=== PATIENT | female | born 1950 | race Caucasian/White ===

== ENCOUNTER 2016-03-07 11:12 | Inpatient (IN) | payer OTHER ==
[~2016-03-07 11:12] MED LIST: FENTANYL 100 MCG/2 ML VIAL IV ONE; HYDROmorphone 2 MG/ML VIAL IM ONE; LIDOCAINE 100 MG PFS IV ONE; MIDAZOLAM 2 MG/2 ML VIAL IV ONE; ONDANSETRON HCL 4 MG/2 ML VIAL IV ONE; PROPOFOL 200 MG/20 ML VIAL IV ONE; SUCCINYLCHOLINE 20 MG/1 ML INJ 10 ML MDV IV ONE
[2016-03-07] MEDS ORDERED: CEFAZOLIN 1 GM VIAL ONE (12:10)
[2016-03-07 12:24] LABS: MPV 8.4 fL (7.4-10.4)
--- NOTE | 2016-03-07 14:59 | HIM.ANES ---
Anesthesia Evaluation & Plan Consented Procedure: INCISION AND DEBRIDEMENT LEFT HIP AND OTHER PROCEDURES INDICATED - Focused Review of Systems Cardiac History: Yes: Hx Hypertension, Hx Heart Murmur (SYSTOLIC HEART MURMUR), Hx Cardiac Disorders, Hx Abnormal Cholesterol/Hyperlipidemia HEENT: Yes: Loose/Decaying Teeth, Hx Vision Problem (GLASSSES), Other HEENT Problems Hx Other HEENT Problems: SEASONAL ALLERGIES Respiratory: Yes: Hx Asthma (Rare rescue use), Hx Chronic Obstructive Pulmonary Disease (COPD), Other Hx Respiratory (h/o PE in 01/2016 after last surgery) No: Hx Pneumonia Gastrointestinal: Yes: Hx Gastroesophageal Reflux Disease (Controlled w Rx), Hx Gastrointestinal Disorders, Hx Colonoscopy (2006, 2013), Hx Endoscopy (07/07), Hx Endoscopic Retrograde Cholangio (07/07), Hx Esophageal Dilatation Neurological/Musculoskeletal: Yes: Hx Migraine, Hx Back Pain, Hx Neurological Disorders Psychological: No Hx Mental/Emotional Disorders Blood/Autoimmune: No: Hx Blood Transfusions, Hx AIDS, Hx Hepatitis (type) Smoking Status: Never smoker Past Social History: Denies: Barbiturate Use, Benzodiazipine Use, Substance Use Disorder Hx Echocardiogram (date): Yes (12/2014 EF 60%) Surgical History: Yes: Nasal (SINUS SX.), Back (LUMBAR DISCECTOMY 12/2014), Hip (LEFT TOTAL HIP), Other (Bilateral tubal ligation in 1974, Lymph node removed from the left breast) Other Surgical History: RT BREAST LUMPECTOMY, BTL 1974 - Focused Physical Exam NPO since: 03/07/16 0800 1/2 CUP BLACK COFFEE WITH MEDS Mallampati: Class II Thyromental Distance: Greater than 3 Neck: Full Range of Motion Dental: Removable Dental Work (missing front teeth) Cardiovascular/Chest: Normal (RRR no mumurs or rubs.) Respiratory: Lungs clear. negative: Rhonchi, Wheezing Any problems with anesthesia, including nausea and vomiting?: No Any relatives with a history of Malignant Hyperthermia?: No Does patient have a history of Malignant Hyperthermia?: No Beta Susan given (if appropriate): N/A Does the patient have a history of Motion Sickness-: No Other: Problem List Problem Status Onset Abscess Acute COPD (chronic obstructive pulmonary disease) Acute Cellulitis and abscess of digit Acute Chest tightness or pressure Acute History of excision of lamina of lumbar vertebra for decompression of spinal cord Acute Hypertension Acute Rheumatoid arthritis Acute Status post total hip replacement, left Acute Lumbar spinal stenosis Chronic CBC/BMP/Other 03/07/16 12:10 Allergies Allergy/AdvReac Type Severity Reaction Status Date / Time codeine Allergy See Verified 03/07/16 11:31 Comments mold Allergy See Verified 03/07/16 11:30 Comments Home Medications Medication Instructions Recorded Last Taken Type Fluticasone/Salmeterol [Advair 1 puff INH BID 08/06/13 03/07/16 08:00 History 250-50 Diskus] Albuterol Sulfate [Proair Hfa] 2 puff INH Q4-6H PRN 01/02/15 01/16/15 07:30 History Pantoprazole Sodium 40 mg PO DAILY 01/04/16 03/07/16 08:00 History Lisinopril/Hydrochlorothiazide 1 tab PO DAILY 02/09/16 03/07/16 08:00 History [Lisinopril-Hctz 20-12.5 mg Tab] Ergocalciferol (Vitamin D2) 50,000 units PO WEEKLY 02/12/16 03/04/16 History [Vitamin D2 (ergocalciferol)] Oxycodone Immediate Release 5 mg PO Q4-6H PRN #40 tab 02/13/16 02/13/16 12:58 Rx [Oxycodone Immediate Release (OxyIR)] Docusate-Senna Concentrate 2 each PO QHS PRN 03/07/16 Unknown History [Senokot S or Martha Colace] Rivaroxaban [Xarelto] 15 mg PO BID 03/07/16 03/07/16 08:00 History Sulfamethoxazole/Trimethoprim 1 tab PO BID 03/07/16 03/06/16 19:00 History [Bactrim Ds Tablet] Height and Weight Patient's height 5 ft 4 in Patient's weight 89.811 kg BMI 35.3 Vital Signs Temperature 97.9 F 03/07/16 11:43 Pulse Rate 75 03/07/16 11:43 Respiratory Rate 18 03/07/16 11:43 Blood Pressure 119/70 03/07/16 11:43 Pulse Oxygen Saturation 94 03/07/16 11:43 METS - Level of Activity: Eating, Dressing, walking around house, dishwashing - Anesthetic Plan Anesthesia Type: General ASA Class: 3, E -: I have examined this patient and reviewed the medical record. The patient has been assessed prior to anesthesia. Risks and benefits of anesthesia and anesthetic technique options have been discussed and all questions answered. The patient accepts the risk and desires me to proceed with the planned anesthetic.
[2016-03-07] MEDS ORDERED: LABETALOL 20 MG/4 ML SYRINGE IV PRN (15:03)
[2016-03-07] MEDS ORDERED: FENTANYL 100 MCG/2 ML VIAL IV PRN ×2 (15:03)
[2016-03-07] MEDS ORDERED: ONDANSETRON HCL 4 MG/2 ML VIAL IV PRN (15:03)
[2016-03-07] MEDS ORDERED: ONDANSETRON HCL 4 MG ODT TAB PO PRN (15:03)
[2016-03-07] MEDS ORDERED: hydrALAZINE 20 MG/ML VIAL IV PRN (15:03)
[2016-03-07] MEDS ORDERED: MEPERIDINE 25 MG/ML TUBEX IV PRN (15:03)
[2016-03-07] MEDS: VANCOMYCIN 1,000 MG VIAL INSTILL ONE ×2 (16:31→18:28)
[2016-03-07] MEDS ORDERED: ALBUTEROL 6.7 GM MDI INH PRN (16:53)
[2016-03-07] MEDS ORDERED: HYDROmorphone 1 MG INJECTION IV PRN ×2 (16:54)
[2016-03-07] MEDS ORDERED: Aluminum;Magnesium;Simethicone 30 ML UDC PO PRN (16:54)
[2016-03-07] MEDS ORDERED: DIPHENHYDRAMINE 25 MG CAP PO PRN (16:54)
[2016-03-07] MEDS ORDERED: DIPHENHYDRAMINE 50 MG/ML VIAL IV PRN (16:54)
[2016-03-07] MEDS ORDERED: SODIUM CHLORIDE 0.9% 3 ML FLUSH FLUSH PRN (16:54)
[2016-03-07] MEDS ORDERED: OXYCODONE HCL 5 MG TABLET PO PRN (16:54)
[2016-03-07] MEDS ORDERED: Pharmacy Order Set Alert SCH (17:00)
[2016-03-07] MEDS ORDERED: [UNRECOGNIZED DRUG - OTHER] SCH (17:00)
[2016-03-07] MEDS ORDERED: Pharmacy Discontinue All Previous Acetaminophen Orders SCH (17:00)
[2016-03-07] MEDS ORDERED: SODIUM CHLORIDE 0.9% 3 ML FLUSH FLUSH SCH (17:00)
[2016-03-07] MEDS ORDERED: NALOXONE 0.4 MG/ML AMPULE IV SCH (17:00)
[2016-03-07] MEDS: FENTANYL 100 MCG/2 ML VIAL ONE ×2 (17:14→17:30)
--- NOTE | 2016-03-07 17:29 | SC.ANESPOS ---
Post-Anesthesia Note LOC: Fully Awake Post-Anesthesia Assessment: Awake, Returned to Baseline, Hemodynamically Stable , Pain Control Adequate Phase I & II Recovery Complete: Yes Apparent Anesthesia Complication: No : N - Vital Signs Blood Pressure: 164/87 Pulse: 76 Resp Rate: 16 O2 Sat: 100 Temp: 97.4 F
[2016-03-07] MEDS ORDERED: HYDROmorphone 1 MG INJECTION ONE (17:34)
[2016-03-07] MEDS ORDERED: DIPHENHYDRAMINE 50 MG/ML VIAL ONE (17:40)
--- NOTE | 2016-03-07 17:53 | HIMCONSMED ---
Consultation Date: 03/07/16 Requesting Physician: Chay Phillips Consulting Doctor: Irish Tello Consult Reason: Medical Management Deandra Jessica is a 65 year old woman who underwent L hip replacement for osteoarthritis and degenerative joint disease of the hip on February 12, 2016. Subsequently she had persistent pain and drainage from the incision site. Apparently the wound re-opened and drained additional material. She was re- evaluated and felt to have an infected joint. She was readmitted today to have the joint washed out and to start IV antibiotics. The entire pre-operative evaluation is not clearly delineated. Presently she is being seen post- operatively at the request of Dr. Franco for assistance with antibiotic coverage. Presumable wound cultures were taken during surgery but are of course not available at this time. We will follow up on those as soon as they do become available. Initial recommendations are for vancomycin plus either clindamycin or ceftriaxone. Since the patient has no allergies, we would recommend ceftriaxone 2 g IV q 24 hr plus vancomycin weight/renal dosing per pharmacy. Chief Complaint: Septic arthritis - Past Medical and Surgical History Cardiac History: Reports: Hypertension, Other (pulmonary embolus Jan 2016) Respiratory History: Reports: Asthma (Rare rescue use), COPD, Pulmonary Embolism (01/2016). Denies: Pneumonia GI/ History: Reports: Gastroesophageal Reflux Systemic History: Reports: Anemia. Denies: Cancer Musculoskeletal History: Reports: Rheumatoid Arthritis Psychological History: Reports: Depression. Denies: Substance Use Disorder Neurological History: Reports: No Significant History Past Surgical History: Reports: Other (Bilateral tubal ligation in 1974, Lymph node removed from the left breast) L hip replacement 2015 Allergies codeine Allergy (Verified 03/07/16 11:31) See Comments "MAKES ME CRAZY IN THE HEAD" mold Allergy (Verified 03/07/16 11:30) See Comments PER ALLERGY TESTING Home Medications Fluticasone/Salmeterol [Advair 250-50 Diskus] 1 puff INH BID 08/06/13 Albuterol Sulfate [Proair Hfa] 2 puff INH Q4-6H PRN 01/02/15 Pantoprazole Sodium 40 mg PO DAILY 01/04/16 Lisinopril/Hydrochlorothiazide [Lisinopril-Hctz 20-12.5 mg Tab] 1 tab PO DAILY 02/09/16 Ergocalciferol (Vitamin D2) [Vitamin D2 (ergocalciferol)] 50,000 units PO WEEKLY 02/12/16 Oxycodone Immediate Release [Oxycodone Immediate Release (OxyIR)] 5 mg PO Q4-6H PRN #40 tab 02/13/16 Docusate-Senna Concentrate [Senokot S or Martha Colace] 2 each PO QHS PRN Rivaroxaban [Xarelto] 15 mg PO BID 03/07/16 Sulfamethoxazole/Trimethoprim [Bactrim Ds Tablet] 1 tab PO BID 03/07/16 - Social History Travel Outside of [place] in the Last 3 Months?: No Lives: with Spouse Smoking Status: Never smoker Social History: Denies: Barbiturate Use, Benzodiazipine Use, Substance Use Disorder - Family History Reports: Hypertension (Mother), Diabetes (son mother), Cancer (sister), Stroke ( Mother), Cardiac Disorders (Mother, SON) - Review of Systems Yes Review of systems cannot be obtained due to the patient's medical condition - Physical Exam Vital Signs: Initial Vitals Temperature 97.9 F 03/07/16 11:43 Pulse Rate 75 03/07/16 11:43 Respiratory Rate 18 03/07/16 11:43 Blood Pressure 119/70 03/07/16 11:43 Pulse Oxygen Saturation 94 03/07/16 11:43 Constitutional: Decreased Consciousness, Somnolent Oriented to: Not Oriented - HEENT Head: Normal Eye: Normal (PERRL: EOMI) Oropharynx: Membranes Dry. negative: Exudate, Red Tympanic Membrane: Normal ENT EAC: Normal TMJ: Normal Nose: No Symptoms Reported. negative: Bleeding, Congestion, Discharge Respiratory: Normal - CTA. negative: Rales, Tachypnea, Wheezes Cardiovascular: Normal (regular rhythm and rate) - GI Auscultation: Normal Palpation: Normal. negative: Enlarged liver, Enlarged spleen, Fluid Wave, Mass Tenderness: Non tender Meier's Sign: Negative Rectal Exam: Deferred - Musculoskeletal Back: Normal Extremities: Pedal Pulse (intact bilaterally), Radial Pulse (normal), Other (c/ o pain and tenderness left lateral hip over greater trochanter) Spine: non-tender, normal alignment, normal inspection - Integumentary Skin: Warm, Dry. negative: Rash Lymphatics: Normal - Neurologic Memory Impaired: Unable to Test Motor Function: Other (moving all extremities spontaneously) Cranial Nerve: Normal Cerebellar: Unable to Test Mood Description: Anxious, Agitated Thought: negative: Coherent (crying in pain, mild delirium) Perception: Normal - Lab Results Laboratory Tests 03/07/16 03/07/16 03/07/16 12:10 12:10 12:10 WBC 9.9 Hgb 11.3 L Hct 34.7 L Plt Count 458 H ESR 37 H Sodium 141 Potassium 4.1 Chloride 102 Carbon Dioxide 28 Anion Gap 15 BUN 11 Creatinine 0.70 Estimated GFR (MDRD) > 60 Glucose 103 H Calculated Osmolality 270 Calcium 9.7 C-Reactive Prot, Quant 10.5 H - Assessment (1) Septic arthritis of hip M00.9 - PYOGENIC ARTHRITIS, UNSPECIFIED Suspected Present on Admission: Clinically Unable to Determine Qualifiers: Laterality: left Qualified Code(s): M00.9 - Pyogenic arthritis, unspecified No gram stain or culture is available, nor is any confirmation that the joint has actually been aspirated. However, since she had a wound dehisence, there is the potential for septic arthritis although this may be due to poor healing from her rheumatoid arthritis. While awaiting deep tissue culture results, I recommend IV vancomycin based on weight and renal function and 2 g of IV ceftriaxone q 24 hours. She may require Nystatin or Diflucan as yeast prophylaxis also. (2) Hypertension I10 - ESSENTIAL (PRIMARY) HYPERTENSION Acute Present on Admission: Yes Qualifiers: Hypertension type: essential hypertension Qualified Code(s): I10 - Essential (primary) hypertension Resume home medications. Continue to monitor blood pressures (3) Status post total hip replacement, left Z96.642 - PRESENCE OF LEFT ARTIFICIAL HIP JOINT Acute Present on Admission: Yes P.r.n. analgesics and physical therapy when cleared by surgery to participate. 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 Continue same. Case Care Discussed with: Patient, Consultants, Nursing Staff, Resource Management Total Time: 65 min Critical Care: Yes Couseling Time (>50% in counseling/coordination): No Code: 291
[2016-03-07] MEDS ORDERED: FLUTICASONE/SALMETEROL 250/50 DISKUS INH SCH (18:00)
[2016-03-07] MEDS: SODIUM CHLORIDE 0.9% 3 ML FLUSH FLUSH SCH (18:29)
[2016-03-07] MEDS: NS 1,000 ML IV SCH (18:34)
[2016-03-07] MEDS: ONDANSETRON HCL 4 MG/2 ML VIAL IV SCH ×2 (18:45→22:53)
[2016-03-07] MEDS: CALCIUM CARBONATE + VITAMIN D 500 MG TAB PO SCH (18:45)
[2016-03-07 18:50] LABS: BLOOD UREA NITROGEN 11 MG/DL (7-17); CALCIUM 9.7 MG/DL (8.4-10.2); CALCULATED OSMOLALITY 270 MOs/Kg (270-290); CHLORIDE 102 mEq/L (98-107); GLUCOSE 103 MG/DL (70-99); SODIUM LEVEL 141 mEq/L (137-146)
[2016-03-07] MEDS: CEFTRIAXONE 2 GM in D5W 100 ML IV SCH (19:59)
[2016-03-07] MEDS ORDERED: Vaccine Screening Complete SCH (20:00)
[2016-03-07] MEDS: OXYCODONE (OxyCONTIN) 10 MG TAB PO SCH (20:14)
[2016-03-07] MEDS: RIVAROXABAN 10 MG TAB PO SCH (20:14)
[2016-03-07] MEDS: FLUTICASONE/SALMETEROL 250/50 DISKUS INH SCH (21:05)
[2016-03-07] MEDS: ACETAMINOPHEN 325 MG/TAB TABLET PO SCH (21:14)
[2016-03-07] MEDS: HYDROmorphone 1 MG INJECTION IV PRN (23:14)
[2016-03-08] MEDS: HYDROmorphone 1 MG INJECTION IV PRN ×3 (02:40→13:53)
[2016-03-08 04:57] VITALS: BMI 34.0
[2016-03-08] MEDS: SODIUM CHLORIDE 0.9% 3 ML FLUSH FLUSH SCH ×2 (04:59→16:29)
[2016-03-08] MEDS: ACETAMINOPHEN 325 MG/TAB TABLET PO SCH ×3 (05:01→23:30)
[2016-03-08] MEDS: ONDANSETRON HCL 4 MG/2 ML VIAL IV SCH ×2 (05:01→11:32)
[2016-03-08] MEDS ORDERED: PANTOPRAZOLE 40 MG TAB PO SCH (06:00)
--- NOTE | 2016-03-08 07:26 | PCM.ORTHBL ---
- Subjective Post Op Day: 1 Daily Assessment - Patient: Reports: No new complaints, Awake Alert Oriented x4 , Still having pain, Tolerating Regular Diet, Afebrile, Other (Patient appears fatigued and drowsy today. Denies chest pain). Denies: Ambulating with Physical Therapist, Shortness of breath, Nausea, Vomiting - Objective / Physical Exam Vital Signs: Temperature: 98.1 F (03/08/16 04:51) HR: 86 (03/08/16 04:51)RR: 20 (03/08/16 04: 51) BP: 114/63 (03/08/16 04:51)Pulse Ox: 93 (03/08/16 04:51) General: Alert, Oriented x3, Cooperative, No acute distress, Well appearing Musculoskeletal / Extremities: 2 plus Dorsalis Pedis Pulse, Dressing Clean/Dry/ Intact. negative: Tenderness (no calf tenderness) Neurological: Positive Sensation First Dorsal Web Space, Sensation to light touch intact, Extensor Hallicus Longus Intact, Flexor Hallicus Longus Intact, Dorsiflexion Intact, Plantarflexion Intact Laboratory/Diagnostics Reviewed: 03/08/16 06:19 - Assessment and Plan (1) Infection of left prosthetic hip joint Acute T84.52XA - INFECT/INFLM REACTION DUE TO INTERNAL LEFT HIP PROSTH, INIT Present on Admission: Yes initial encounter T84.52XA - Infection and inflammatory reaction due to internal left hip prosthesis, initial encounter Plan: POD#1 s/p I&D of left JOSEP with revision of head component PT/OT/WBAT TEDS/SCDS/will continue Xarelto Continue pain management Continue IV antibiotics, on Vancomycin; Awaiting cultures D/C planning. Patient will need 6 weeks IV antibiotics and PICC line placement prior to discharge. Will await culture results. Will likely plan for ID follow -up at discharge as well.
[2016-03-08 07:54] LABS: BLOOD UREA NITROGEN 15 MG/DL (7-17); CALCIUM 9.3 MG/DL (8.4-10.2); CALCULATED OSMOLALITY 261 MOs/Kg (270-290); CHLORIDE 98 mEq/L (98-107); GLUCOSE 142 MG/DL (70-99); SODIUM LEVEL 134 mEq/L (137-146)
[2016-03-08] MEDS ORDERED: Remove Transdermal Scopolamine Patch after 24 hours ONE (08:00)
[2016-03-08] MEDS ORDERED: HYDROCHLOROTHIAZIDE 12.5 MG CAP PO SCH (09:00)
[2016-03-08] MEDS: FLUTICASONE/SALMETEROL 250/50 DISKUS INH SCH ×2 (09:01→20:26)
[2016-03-08] MEDS: OXYCODONE (OxyCONTIN) 10 MG TAB PO SCH ×2 (09:10→23:30)
[2016-03-08] MEDS: NS 1,000 ML IV SCH ×2 (09:11→17:00)
[2016-03-08] MEDS: RIVAROXABAN 10 MG TAB PO SCH (09:12)
[2016-03-08] MEDS: LISINOPRIL 20 MG TAB PO SCH (09:12)
[2016-03-08] MEDS: CALCIUM CARBONATE + VITAMIN D 500 MG TAB PO SCH ×2 (11:32→17:00)
[2016-03-08] MEDS: VITAMINS, MULTIPLE CAP PO SCH (11:32)
--- NOTE | 2016-03-08 16:13 | GENMEDPROG ---
Chief Complaint: SEPTIC ARTHRITIS, HEMATEMESIS, DIZZINESS Subjective Note: PATIENT VOMITING SMALL AMOUNTS OF DARK BROWNISH RED FLUID Currently: Reports: Nausea and Vomiting, Other (DIZZINESS) - Physical Examination Vital Signs and I&O: Last Vital Signs Temp 98.0 F 03/08/16 14:00 Pulse 90 03/08/16 14:00 Resp 20 03/08/16 14:00 BP 106/53 L 03/08/16 14:00 Pulse Ox 98 03/08/16 14:00 Oxygen Pulse Oxygen Saturation 98 O2 Device Nasal Cannula Oxygen Flow Rate 3 Fraction of Inspired Oxygen ( 100 FIO2) Intake & Output 03/05/16 03/06/16 03/07/16 03/08/16 23:59 23:59 23:59 23:59 Intake Total 1917 Output Total 275 400 Balance -275 1517 Patient's weight 89.811 kg 89.953 kg General: Alert, Oriented x3, Cooperative, No acute distress, Well appearing HEENT: PERRLA, EOMI, Anicteric Sclera, Mucous membr. moist/pink, Pallor Neck: Full range of motion, Normal Trachea alignment, Normal inspection, No Masses palpable Lymphatics: Normal Respiratory: Normal - CTA Cardiovascular: Regular rate and rhythm, Normal S1, Normal S2 GI: Normal bowel sounds, Soft, Non tender, No masses Extremities/Musculoskeletal: Normal pulses, Edema (1+), DJD, FROM Skin: Warm,Dry and Intact, No breakdown Neurological: Normal speech, Strength at 5/5 X4 ext, Normal tone, Gait Unsteady Psych/Mental Status: Normal Affect, Cooperative Lab/DI/Studies Reviewed: Laboratory Tests 03/08/16 03/08/16 06:19 06:19 WBC 18.7 H Hgb 8.8 L D Hct 26.9 L Plt Count 467 H Sodium 134 L Potassium 5.3 H D Chloride 98 Carbon Dioxide 27 Anion Gap 14 BUN 15 Creatinine 1.00 Estimated GFR (MDRD) 55 L Glucose 142 H Calculated Osmolality 261 L Calcium 9.3 - Assessment (1) Septic arthritis of hip Suspected M00.9 - PYOGENIC ARTHRITIS, UNSPECIFIED Qualifiers: Laterality: left Comment/Plan: Since she had a wound dehisence, there is the potential for septic arthritis although this may be due to poor healing from her rheumatoid arthritis. While awaiting deep tissue culture results, continue IV vancomycin based on weight and renal function and 2 g of IV ceftriaxone q 24 hours. She may require Nystatin or Diflucan as yeast prophylaxis also. (2) Hypertension Acute I10 - ESSENTIAL (PRIMARY) HYPERTENSION Qualifiers: Hypertension type: essential hypertension Qualified Code(s): I10 - Essential (primary) hypertension Comment/Plan: Resume home medications. Continue to monitor blood pressures (3) Status post total hip replacement, left Acute Z96.642 - PRESENCE OF LEFT ARTIFICIAL HIP JOINT Comment/Plan: P.r.n. analgesics and physical therapy when cleared by surgery to participate. (4) Hematemesis with nausea Acute K92.0 - HEMATEMESIS; R11.0 - NAUSEA Comment/Plan: Stop NSAIDs & Aspirin, Hold Celebrex and Xarelto, begin IV Protonix infusion. Follow H/H. If stable after 48 hrs, resume DVT prophylaxis. Use SCD's in meantime. (5) Rheumatoid arthritis Chronic M06.9 - RHEUMATOID ARTHRITIS, UNSPECIFIED Qualifiers: Rheumatoid arthritis location: multiple sites Rheumatoid factor presence: unspecified presence Qualified Code(s): M06.9 - Rheumatoid arthritis, unspecified Comment/Plan: Hold any DMARDs for now, give adequate analgesics and begin physical therapy (6) Pulmonary embolus and infarction Chronic I26.99 - OTHER PULMONARY EMBOLISM WITHOUT ACUTE COR PULMONALE Comment/Plan: occurred 1 month ago- still on Xarelto for this. Continue same.
[2016-03-08] MEDS ORDERED: PANTOPRAZOLE 40 MG VIAL IV ONE (18:47)
[2016-03-08] MEDS ORDERED: SODIUM CHLORIDE IV SCH (19:00)
[2016-03-08] MEDS ORDERED: PANTOPRAZOLE SODIUM IV SCH (19:00)
[2016-03-08] MEDS: CEFTRIAXONE 2 GM in D5W 100 ML IV SCH (20:46)
[2016-03-08] MEDS: ONDANSETRON HCL 4 MG/2 ML VIAL IV PRN (20:52)
[2016-03-08] MEDS: PANTOPRAZOLE SODIUM 40 MG in NS 100 ML IV SCH ×2 (23:59)
[2016-03-09] MEDS: PANTOPRAZOLE SODIUM 40 MG in NS 100 ML IV SCH ×4 (04:45→19:26)
[2016-03-09] MEDS: SODIUM CHLORIDE 0.9% 3 ML FLUSH FLUSH SCH ×2 (04:50→17:48)
[2016-03-09] MEDS: ACETAMINOPHEN 325 MG/TAB TABLET PO SCH ×3 (04:51→21:54)
[2016-03-09] MEDS: HYDROmorphone 1 MG INJECTION IV PRN (06:50)
[2016-03-09] MEDS: ONDANSETRON HCL 4 MG/2 ML VIAL IV PRN ×2 (07:03→20:54)
[2016-03-09] MEDS: FLUTICASONE/SALMETEROL 250/50 DISKUS INH SCH ×2 (07:39→20:30)
[2016-03-09 07:51] LABS: BLOOD UREA NITROGEN 16 MG/DL (7-17); CALCULATED OSMOLALITY 257 MOs/Kg (270-290); CHLORIDE 100 mEq/L (98-107); GLUCOSE 111 MG/DL (70-99); SODIUM LEVEL 132 mEq/L (137-146)
[2016-03-09] MEDS: NS 1,000 ML IV SCH ×3 (07:59→18:01)
--- NOTE | 2016-03-09 08:33 | PCM.ORTHBL ---
- Subjective Post Op Day: 2 Daily Assessment - Patient: Reports: No new complaints, Still having pain, Pain is less, Tolerating Regular Diet - Objective / Physical Exam Vital Signs: Temperature: 98.3 F (03/09/16 05:49) HR: 87 (03/09/16 05:49)RR: 18 (03/09/16 05: 49) BP: 114/50 (03/09/16 05:49)Pulse Ox: 98 (03/09/16 07:42) General: Alert, Oriented x3, Cooperative, No acute distress Musculoskeletal / Extremities: 2 plus Dorsalis Pedis Pulse, Dressing Clean/Dry/ Intact Neurological: Sensation to light touch intact (DP/SP/T/S/S), Extensor Hallicus Longus Intact, Flexor Hallicus Longus Intact, Dorsiflexion Intact, Plantarflexion Intact Skin: Warm,Dry and Intact, No rashes, No breakdown Laboratory/Diagnostics Reviewed: Abnormal Lab Results 03/09/16 03/09/16 07:18 07:18 WBC 13.9 H RBC 2.34 L Hgb 6.5 L* D Hct 19.6 L Sodium 132 L Glucose 111 H Calculated Osmolality 257 L - Assessment and Plan (1) Septic arthritis of hip Suspected M00.9 - PYOGENIC ARTHRITIS, UNSPECIFIED Present on Admission: Clinically Unable to Determine left Plan: 65 y/o f POD #2 s/p L JOSEP I+D with head exchange. Pt. doing well. Afebrile. Pain improving. Cx's pending. Hgb dropped to 6.5. Discussed plan w/ Dr. Phillips this am and will plan on transfusion 2units PRBC's. OOB w/ PT- WBAT. Dispo planing. Will f/u cx's.
--- NOTE | 2016-03-09 09:39 | GENMEDPROG ---
Chief Complaint: SEPTIC JOINT, ANEMIA, HTN, RA, S/P IRRIGATON OF L HIP Currently: Reports: Nausea and Vomiting, Other (DIZZINESS) - Physical Examination Vital Signs and I&O: Last Vital Signs Temp 98.3 F 03/09/16 05:49 Pulse 87 03/09/16 05:49 Resp 18 03/09/16 05:49 BP 114/50 L 03/09/16 05:49 Pulse Ox 98 03/09/16 07:42 Oxygen Pulse Oxygen Saturation 98 O2 Device Nasal Cannula Oxygen Flow Rate 3 Fraction of Inspired Oxygen ( 100 FIO2) Intake & Output 03/06/16 03/07/16 03/08/16 03/09/16 23:59 23:59 23:59 23:59 Intake Total 3462 2412 Output Total 853 286 8364 Balance -275 2562 662 Patient's weight 89.811 kg 89.953 kg 92.278 kg General: Alert, Oriented x3, Cooperative, No acute distress HEENT: Normal, PERRLA, EOMI, Anicteric Sclera, Mucous membr. moist/pink Neck: Non-tender, Full range of motion, Normal Trachea alignment, Normal inspection Lymphatics: Normal Respiratory: Normal - CTA Cardiovascular: Regular rate and rhythm, Normal S1, Normal S2 GI: Normal bowel sounds, Soft, Non tender Extremities/Musculoskeletal: Normal pulses Skin: Warm,Dry and Intact, No rashes, No breakdown Neurological: Normal speech, Strength at 5/5 X4 ext, Normal tone, Cranial nerves 3-12 NL Psych/Mental Status: Appropriate, Normal Affect, Cooperative Lab/DI/Studies Reviewed: Laboratory Tests 03/08/16 03/08/16 03/09/16 06:19 06:19 07:18 WBC 18.7 H 13.9 H Hgb 8.8 L D 6.5 L* D Hct 26.9 L 19.6 L Plt Count 467 H 312 Sodium 134 L Potassium 5.3 H D Chloride 98 Carbon Dioxide 27 Anion Gap 14 BUN 15 Creatinine 1.00 Estimated GFR (MDRD) 55 L Glucose 142 H Calculated Osmolality 261 L Calcium 9.3 03/09/16 07:18 WBC Hgb Hct Plt Count Sodium 132 L Potassium 4.4 Chloride 100 Carbon Dioxide 27 Anion Gap 9 BUN 16 Creatinine 0.80 Estimated GFR (MDRD) > 60 Glucose 111 H Calculated Osmolality 257 L Calcium 9.0 - Assessment (1) Septic arthritis of hip Suspected M00.9 - PYOGENIC ARTHRITIS, UNSPECIFIED Qualifiers: Laterality: left Comment/Plan: Since she had a wound dehisence, there is the potential for septic arthritis although this may be due to poor healing from her rheumatoid arthritis. While awaiting deep tissue culture results, continue IV vancomycin based on weight and renal function and 2 g of IV ceftriaxone q 24 hours. She may require Nystatin or Diflucan as yeast prophylaxis also. (2) Anemia Acute D64.9 - ANEMIA, UNSPECIFIED Qualifiers: Anemia type: other cause Other causes of anemia: acute posthemorrhagic Qualified Code(s): D62 - Acute posthemorrhagic anemia Comment/Plan: ACUTE BLOOD LOSS- continue to hold Xarelto & Aspirin. Patient is on Protonix infusion. Transfuse 2 units PRBCs. (3) Hypertension Acute I10 - ESSENTIAL (PRIMARY) HYPERTENSION Qualifiers: Hypertension type: essential hypertension Qualified Code(s): I10 - Essential (primary) hypertension Comment/Plan: Resume home medications. Continue to monitor blood pressures (4) Status post total hip replacement, left Acute Z96.642 - PRESENCE OF LEFT ARTIFICIAL HIP JOINT Comment/Plan: P.r.n. analgesics and physical therapy when cleared by surgery to participate. (5) Hematemesis with nausea Acute K92.0 - HEMATEMESIS; R11.0 - NAUSEA Comment/Plan: Stopped all NSAIDs & Aspirin, off Celebrex and Xarelto, continue IV Protonix infusion. Follow H/ H. Transfusing blood today. Use SCD's in meantime. (6) Rheumatoid arthritis Chronic M06.9 - RHEUMATOID ARTHRITIS, UNSPECIFIED Qualifiers: Rheumatoid arthritis location: multiple sites Rheumatoid factor presence: unspecified presence Qualified Code(s): M06.9 - Rheumatoid arthritis, unspecified Comment/Plan: Hold any DMARDs for now, give adequate analgesics and begin physical therapy (7) Pulmonary embolus and infarction Chronic I26.99 - OTHER PULMONARY EMBOLISM WITHOUT ACUTE COR PULMONALE Comment/Plan: occurred 1 month ago- still on Xarelto for this. Unfortunately had to discontinue this medication due to hematemesis. May need IVC filter. Case Care Discussed with: Patient, Family, Nursing Staff Code: [id number] (12+)
[2016-03-09] MEDS: LISINOPRIL 20 MG TAB PO SCH (10:00)
[2016-03-09] MEDS: OXYCODONE (OxyCONTIN) 10 MG TAB PO SCH ×2 (10:00→21:54)
[2016-03-09] MEDS: VITAMINS, MULTIPLE CAP PO SCH (10:00)
[2016-03-09] MEDS: CALCIUM CARBONATE + VITAMIN D 500 MG TAB PO SCH ×2 (10:00→17:49)
[2016-03-09] MEDS ORDERED: FUROSEMIDE 40 MG/4 ML VIAL IV ONE (18:00)
[2016-03-09] MEDS: FUROSEMIDE 20 MG/2 ML VIAL ONE ×2 (18:01→18:03)
[2016-03-09] MEDS: CEFTRIAXONE 2 GM in D5W 100 ML IV SCH (20:37)
[2016-03-09] MEDS: MAGNESIUM HYDROXIDE 30 ML BOTTLE PO PRN (21:54)
[2016-03-10] MEDS: PANTOPRAZOLE SODIUM 40 MG in NS 100 ML IV SCH ×5 (00:40→21:35)
[2016-03-10] MEDS: NS 1,000 ML IV SCH ×2 (06:27→17:20)
[2016-03-10] MEDS: SODIUM CHLORIDE 0.9% 3 ML FLUSH FLUSH SCH ×2 (06:28→17:20)
[2016-03-10] MEDS: ACETAMINOPHEN 325 MG/TAB TABLET PO SCH ×3 (06:35→21:37)
[2016-03-10 07:31] LABS: MPV 8.9 fL (7.4-10.4)
[2016-03-10 07:41] LABS: BLOOD UREA NITROGEN 13 MG/DL (7-17); CALCIUM 8.6 MG/DL (8.4-10.2); CALCULATED OSMOLALITY 262 MOs/Kg (270-290); CHLORIDE 102 mEq/L (98-107); GLUCOSE 94 MG/DL (70-99); SODIUM LEVEL 136 mEq/L (137-146)
[2016-03-10] MEDS: FLUTICASONE/SALMETEROL 250/50 DISKUS INH SCH ×2 (07:51→20:23)
--- NOTE | 2016-03-10 08:20 | PCM.ORTHBL ---
- Subjective Post Op Day: 3 Daily Assessment - Patient: Reports: No new complaints, Feels better, Tolerating Regular Diet, Voiding without difficulty, Afebrile, Ambulating with Physical Therapist - Objective / Physical Exam Vital Signs: Temperature: 98.1 F (03/10/16 06:38) HR: 85 (03/10/16 06:38)RR: 20 (03/10/16 06: 38) BP: 139/77 (03/10/16 06:38)Pulse Ox: 94 (03/10/16 07:54) General: Alert, Oriented x3, Cooperative, No acute distress, Obese Musculoskeletal / Extremities: 2 plus Dorsalis Pedis Pulse, Dressing Clean/Dry/ Intact, Tenderness Neurological: Positive Sensation First Dorsal Web Space, Sensation to light touch intact, Extensor Hallicus Longus Intact, Flexor Hallicus Longus Intact, Dorsiflexion Intact, Plantarflexion Intact Skin: Warm,Dry and Intact Laboratory/Diagnostics Reviewed: Laboratory Results - last 24 hr 03/09/16 03/10/16 03/10/16 09:55 06:55 06:55 WBC 11.8 H RBC 2.86 L Hgb 8.2 L D Hct 25.0 L MCV 87 MCH 28.6 MCHC 32.8 L RDW 15.0 H Plt Count 297 MPV 8.9 Sodium 136 L Potassium 4.1 Chloride 102 Carbon Dioxide 28 Anion Gap 10 BUN 13 Creatinine 0.70 Estimated GFR (MDRD) > 60 Glucose 94 Calculated Osmolality 262 L Calcium 8.6 Blood Type A POSITIVE Antibody Screen Negative Crossmatch See Detail - Assessment and Plan (1) Infection of left prosthetic hip joint Acute T84.52XA - INFECT/INFLM REACTION DUE TO INTERNAL LEFT HIP PROSTH, INIT Present on Admission: Yes initial encounter T84.52XA - Infection and inflammatory reaction due to internal left hip prosthesis, initial encounter Comment/Plan: POD #3 s/p L JOSEP I&D with head exchange. MRSA and gram negative rods on prelim cultures with patient currently on vanco. Sensitivities pending. PT/OT for WBAT LLE with AD. DVT ppx as ordered. Will d/w medicine and Dr. Phillips.
[2016-03-10] MEDS: VITAMINS, MULTIPLE CAP PO SCH (09:00)
[2016-03-10] MEDS: CALCIUM CARBONATE + VITAMIN D 500 MG TAB PO SCH ×2 (09:00→17:20)
[2016-03-10] MEDS: LISINOPRIL 20 MG TAB PO SCH (09:00)
[2016-03-10] MEDS: OXYCODONE (OxyCONTIN) 10 MG TAB PO SCH (09:00)
--- NOTE | 2016-03-10 12:24 | GENMEDPROG ---
Chief Complaint: SEPTIC JOINT, TME, ANEMIA, GI BLEED, Subjective Note: Patient c/o excessive drowsiness Currently: Reports: Nausea and Vomiting, Other (DIZZINESS) - Physical Examination Vital Signs and I&O: Last Vital Signs Temp 98.0 F 03/10/16 10:00 Pulse 91 03/10/16 10:00 Resp 18 03/10/16 10:00 BP 102/49 L 03/10/16 10:00 Pulse Ox 98 03/10/16 10:00 Oxygen Pulse Oxygen Saturation 98 O2 Device Room Air Oxygen Flow Rate 1 Fraction of Inspired Oxygen ( 100 FIO2) Intake & Output 03/07/16 03/08/16 03/09/16 03/10/16 23:59 23:59 23:59 23:59 Intake Total 3462 4258 2842 Output Total 861 875 5717 2075 Balance -275 2562 -642 767 Patient's weight 89.811 kg 89.953 kg 92.278 kg 93.242 kg General: Alert, Oriented x3, Cooperative, No acute distress, Obese HEENT: Normal, PERRLA, EOMI, Anicteric Sclera Neck: Full range of motion, Normal Trachea alignment, Normal inspection Lymphatics: Normal Respiratory: Normal - CTA Cardiovascular: Regular rate, Normal S1, Normal S2 GI: Normal bowel sounds, Soft, Non tender, No masses Extremities/Musculoskeletal: Normal pulses. negative: Edema Skin: Warm,Dry and Intact Neurological: Normal speech, Strength at 5/5 X4 ext, Normal tone, Drowsy Psych/Mental Status: Normal Affect, Cooperative, Drowsy Lab/DI/Studies Reviewed: Microbiology 03/07/16 15:45 Hip - Left Tissue Culture - Preliminary Staphylococcus aureus Morg. morg. ssp morganii Streptococcus anginosus - Assessment (1) Septic arthritis of hip Suspected M00.9 - PYOGENIC ARTHRITIS, UNSPECIFIED Qualifiers: Laterality: left Comment/Plan: Since she had a wound dehisence, there is the potential for septic arthritis although this may be due to poor healing from her rheumatoid arthritis. Deep tissue culture results- shows MRSA, Morganella, and Strep species, continue IV vancomycin and renal function and 2g IV ceftriaxone q 24 hours. Also IV Diflucan as yeast prophylaxis. (2) Anemia Acute D64.9 - ANEMIA, UNSPECIFIED Qualifiers: Anemia type: other cause Other causes of anemia: acute posthemorrhagic Qualified Code(s): D62 - Acute posthemorrhagic anemia Comment/Plan: ACUTE BLOOD LOSS- continue to hold Xarelto & Aspirin. Patient is on Protonix infusion. Transfused 2 units PRBCs yesterday. (3) Hypertension Acute I10 - ESSENTIAL (PRIMARY) HYPERTENSION Qualifiers: Hypertension type: essential hypertension Qualified Code(s): I10 - Essential (primary) hypertension Comment/Plan: Resume home medications. Continue to monitor blood pressures (4) Status post total hip replacement, left Acute Z96.642 - PRESENCE OF LEFT ARTIFICIAL HIP JOINT Comment/Plan: P.r.n. analgesics and physical therapy when cleared by surgery to participate. (5) Hematemesis with nausea Acute K92.0 - HEMATEMESIS; R11.0 - NAUSEA Comment/Plan: Stopped all NSAIDs & Aspirin, off Celebrex and Xarelto, continue IV Protonix infusion. Follow H/ H. Transfused blood yesterday. Use SCD's in meantime. (6) Rheumatoid arthritis Chronic M06.9 - RHEUMATOID ARTHRITIS, UNSPECIFIED Qualifiers: Rheumatoid arthritis location: multiple sites Rheumatoid factor presence: unspecified presence Qualified Code(s): M06.9 - Rheumatoid arthritis, unspecified Comment/Plan: Hold any DMARDs for now, give adequate analgesics and begin physical therapy (7) Pulmonary embolus and infarction Chronic I26.99 - OTHER PULMONARY EMBOLISM WITHOUT ACUTE COR PULMONALE Comment/Plan: occurred 1 month ago- was still on Xarelto for this. Unfortunately had to discontinue this medication due to hematemesis. May need IVC filter.
[2016-03-10] MEDS: CEFTRIAXONE 2 GM in D5W 100 ML IV SCH (19:43)
[2016-03-10] MEDS: DOCUSATE-SENNA CONCENTRATE TAB PO PRN (21:01)
[2016-03-11] MEDS: PANTOPRAZOLE SODIUM 40 MG in NS 100 ML IV SCH ×3 (02:10→12:08)
[2016-03-11] MEDS: SODIUM CHLORIDE 0.9% 3 ML FLUSH FLUSH SCH ×2 (05:46→17:17)
[2016-03-11] MEDS: ACETAMINOPHEN 325 MG/TAB TABLET PO SCH ×3 (05:46→19:15)
--- NOTE | 2016-03-11 06:40 | PCM.ORTHBL ---
- Subjective Post Op Day: 4 Daily Assessment - Patient: Reports: No new complaints, Awake Alert Oriented x4 , Feels better, Pain is less, Tolerating Regular Diet, Voiding without difficulty, Afebrile, Ambulating with Physical Therapist, Other (DENIES CHEST PAIN). Denies: Shortness of breath, Nausea, Vomiting - Objective / Physical Exam Vital Signs: Temperature: 98 F (03/11/16 02:00) HR: 88 (03/11/16 02:00)RR: 18 (03/11/16 02:00 ) BP: 118/64 (03/11/16 02:00)Pulse Ox: 94 (03/11/16 02:00) General: Alert, Oriented x3, Cooperative, No acute distress, Well appearing Musculoskeletal / Extremities: 2 plus Dorsalis Pedis Pulse, Dressing Clean/Dry/ Intact. negative: Tenderness (no calf tenderness) Neurological: Positive Sensation First Dorsal Web Space, Sensation to light touch intact, Extensor Hallicus Longus Intact, Flexor Hallicus Longus Intact, Dorsiflexion Intact, Plantarflexion Intact Laboratory/Diagnostics Reviewed: 03/11/16 07:54 03/10/16 06:55 - Assessment and Plan (1) Infection of left prosthetic hip joint Acute T84.52XA - INFECT/INFLM REACTION DUE TO INTERNAL LEFT HIP PROSTH, INIT Present on Admission: Yes T84.52XA - Infection and inflammatory reaction due to internal left hip prosthesis, initial encounter Plan: s/p I&D of left JOSEP, revision of head component Continue pain management Continue antibiotics; patient on Vancomycin, Ceftriaxone has been added following culture results; Will need 6 weeks IV antibiotics at discharge. Patient will also need PICC line prior to discharge. WBC improved PT/OT/WBAT TEDS/SCDS/Xarelto held due to hematemesis. Continue anticoagulation per medicine. Consideration for IVC filter. D/C planning, possible to Rehab/SNF
[2016-03-11] MEDS: FLUTICASONE/SALMETEROL 250/50 DISKUS INH SCH ×2 (07:56→21:11)
[2016-03-11] MEDS: LISINOPRIL 20 MG TAB PO SCH (08:01)
[2016-03-11 08:14] LABS: AUTOMATED BASOPHIL 0.7 % (0-2); AUTOMATED EOSINOPHIL 3.8 % (0-5); AUTOMATED LYMPH 18.4 % (17-44); AUTOMATED MONOCYTE 8.4 % (3-10); AUTOMATED NEUTROPHIL 68.7 % (45-76); MPV 8.3 fL (7.4-10.4)
[2016-03-11] MEDS ORDERED: ERGOCALCIFEROL (VITAMIN D2) 50000 UNITS CAP PO SCH (09:00)
--- NOTE | 2016-03-11 10:30 | PCM.ORTHBL ---
- Subjective Chief Complaint: s/p I & D L hip Hospital Day #: 5 Post Op Day: 5 Daily Assessment - Patient: Reports: No new complaints, Pain is less, Tolerating Regular Diet, Ambulating with Physical Therapist, Other (Jacek crenhsaw.) - Objective / Physical Exam Vital Signs: Temperature: 97.8 F (03/11/16 06:00) HR: 76 (03/11/16 06:00)RR: 18 (03/11/16 06: 00) BP: 133/64 (03/11/16 06:00)Pulse Ox: 94 (03/11/16 07:55) General: Alert, Oriented x3 Musculoskeletal / Extremities: 2 plus Dorsalis Pedis Pulse, Motor 5/5 throughout Neurological: Positive Sensation First Dorsal Web Space, Sensation to light touch intact, Extensor Hallicus Longus Intact, Flexor Hallicus Longus Intact, Dorsiflexion Intact, Plantarflexion Intact Plan: Continue IV Abx Ceftriaxone/ Vancomicin ESR/CRP in AM PICC line and IVC filter Placement.
--- NOTE | 2016-03-11 10:38 | GENMEDPROG ---
Currently: Reports: Nausea and Vomiting, Other (DIZZINESS) - Physical Examination Vital Signs and I&O: Last Vital Signs Temp 97.8 F 03/11/16 06:00 Pulse 76 03/11/16 06:00 Resp 18 03/11/16 06:00 BP 133/64 03/11/16 06:00 Pulse Ox 94 03/11/16 07:55 Oxygen Pulse Oxygen Saturation 94 O2 Device Room Air Oxygen Flow Rate 2 Fraction of Inspired Oxygen ( 100 FIO2) Intake & Output 03/08/16 03/09/16 03/10/16 03/11/16 23:59 23:59 23:59 23:59 Intake Total 3462 4258 4717 1060 Output Total 900 4900 3725 1225 Balance 2562 -642 992 -165 Patient's weight 89.953 kg 92.278 kg 93.242 kg General: Alert, Oriented x3, Cooperative, No acute distress, Well appearing HEENT: Normal, PERRLA, EOMI, Anicteric Sclera, Mucous membr. moist/pink Neck: Full range of motion, Normal Trachea alignment, Normal inspection, No Masses palpable Lymphatics: Normal Respiratory: Normal - CTA Cardiovascular: Regular rate and rhythm, Normal S1, Normal S2 GI: Normal bowel sounds, Soft, Non tender, No hepatospenomegaly, No masses, Obese Extremities/Musculoskeletal: Normal pulses, DJD Skin: Warm,Dry and Intact, No rashes, No breakdown Neurological: Normal tone, Cranial nerves 3-12 NL, Drowsy Psych/Mental Status: Appropriate, Normal Affect, Cooperative - Assessment (1) Septic arthritis of hip Suspected M00.9 - PYOGENIC ARTHRITIS, UNSPECIFIED Qualifiers: Laterality: left Comment/Plan: Deep tissue culture results- shows MRSA, Morganella, and Strep species, continue IV vancomycin and renal function and 2g IV ceftriaxone q 24 hours. Also IV Diflucan as yeast prophylaxis. Dr. Michelle to do PICC and IVC filter. (2) Anemia Acute D64.9 - ANEMIA, UNSPECIFIED Qualifiers: Anemia type: other cause Other causes of anemia: acute posthemorrhagic Qualified Code(s): D62 - Acute posthemorrhagic anemia Comment/Plan: ACUTE BLOOD LOSS- continue to hold Xarelto & Aspirin. Patient is on Protonix infusion. Transfused 2 units PRBCs yesterday. (3) Hypertension Acute I10 - ESSENTIAL (PRIMARY) HYPERTENSION Qualifiers: Hypertension type: essential hypertension Qualified Code(s): I10 - Essential (primary) hypertension Comment/Plan: Resume home medications. Continue to monitor blood pressures (4) Status post total hip replacement, left Acute Z96.642 - PRESENCE OF LEFT ARTIFICIAL HIP JOINT Comment/Plan: P.r.n. analgesics and physical therapy when cleared by surgery to participate. (5) Hematemesis with nausea Acute K92.0 - HEMATEMESIS; R11.0 - NAUSEA Comment/Plan: Stopped all NSAIDs & Aspirin, off Celebrex and Xarelto, continue IV Protonix infusion. Follow H/ H. Transfused blood yesterday. Use SCD's in meantime. (6) Rheumatoid arthritis Chronic M06.9 - RHEUMATOID ARTHRITIS, UNSPECIFIED Qualifiers: Rheumatoid arthritis location: multiple sites Rheumatoid factor presence: unspecified presence Qualified Code(s): M06.9 - Rheumatoid arthritis, unspecified Comment/Plan: Hold any DMARDs for now, give adequate analgesics and begin physical therapy (7) Pulmonary embolus and infarction Chronic I26.99 - OTHER PULMONARY EMBOLISM WITHOUT ACUTE COR PULMONALE Comment/Plan: occurred 1 month ago- was still on Xarelto for this. Unfortunately had to discontinue this medication due to hematemesis. Dr. Michelle to place IVC filter.
--- NOTE | 2016-03-11 10:50 | PCM.SURGCO ---
Consultation Date: 03/11/16 Requesting Physician: Chay Phillips Dye Line Operator: Beka Michelle Consult Reason: Poor Venous Access, Other (PE) - History of Present Illness The patient is an unfortunate 65-year-old female who developed an infected joint and had joint washout was started on IV antibiotics. She had subsequently after her hip surgery back in January had developed a pulmonary emboli and had been put on Xarelto. She however developed some hematemesis and had to have the anticoagulation stopped. We have been asked to place inferior vena cava filter because of her history pulmonary emboli and DVT and inability to anticoagulate. We have also been asked to obtain long-term access so that she can get long-term IV antibiotics. The patient is in good spirits. She had her initial left hip replacement and February 11 in last year. She had the wash out on 03/07/2016. She does have a son who had from a pulmonary emboli. Chief Complaint: Septic arthritis - Past Medical and Surgical History Cardiac History: Reports: Hypertension Respiratory History: Reports: Asthma, COPD, Pulmonary Embolism GI/ History: Reports: Gastroesophageal Reflux. Denies: Renal Disease Systemic History: Reports: Anemia. Denies: Cancer Musculoskeletal History: Reports: Arthritis, Rheumatoid Arthritis, Osteoarthritis Psychological History: Reports: Depression. Denies: Substance Use Disorder Neurological History: Reports: No Significant History. Denies: Cerebrovascular Accident, Seizures Past Surgical History: Reports: Other (The hip surgery as described above, tubal ligation, lymph node biopsy.) Allergies codeine Allergy (Verified 03/07/16 11:31) See Comments "MAKES ME CRAZY IN THE HEAD" mold Allergy (Verified 03/07/16 11:30) See Comments PER ALLERGY TESTING Home Medications Fluticasone/Salmeterol [Advair 250-50 Diskus] 1 puff INH BID 08/06/13 Albuterol Sulfate [Proair Hfa] 2 puff INH Q4-6H PRN 01/02/15 Pantoprazole Sodium 40 mg PO DAILY 01/04/16 Lisinopril/Hydrochlorothiazide [Lisinopril-Hctz 20-12.5 mg Tab] 1 tab PO DAILY 02/09/16 Ergocalciferol (Vitamin D2) [Vitamin D2 (ergocalciferol)] 50,000 units PO WEEKLY 02/12/16 Oxycodone Immediate Release [Oxycodone Immediate Release (OxyIR)] 5 mg PO Q4-6H PRN #40 tab 02/13/16 Docusate-Senna Concentrate [Senokot S or Martha Colace] 2 each PO QHS PRN Rivaroxaban [Xarelto] 15 mg PO BID 03/07/16 Sulfamethoxazole/Trimethoprim [Bactrim Ds Tablet] 1 tab PO BID 03/07/16 - Social History Travel Outside of [place] in the Last 3 Months?: No Lives: with Spouse Smoking Status: Never smoker Social History: Denies: Substance Use Disorder - Family History Reports: Hypertension (Mother), Diabetes (son mother), Cancer (sister), Stroke ( Mother), Cardiac Disorders (Mother, SON) - Review of Systems Constitutional: No Symptoms Reported. negative: Chills, Fever Eyes: No Symptoms Reported. negative: Blurred Vision, Double Vision Ears: No Symptoms Reported. negative: Hearing Loss, Pain Nose: No Symptoms Reported. negative: Abrasion, Bleeding Mouth: No Symptoms Reported. negative: Pain, Tooth Pain Throat/Neck: No Symptoms Reported. negative: Pain, Hoarseness Respiratory: No Symptoms Reported. negative: Cough, Hemoptysis Cardiovascular: No Symptoms Reported. negative: Chest Pain, Cyanosis Gastrointestinal: Other (Hematemesis.). negative: Nausea, Vomiting, Diarrhea Genitourinary: No Symptoms Reported. negative: Bleeding, Dysuria Neurological: No Symptoms Reported. negative: Dizziness, Seizure Musculoskeletal:: Osteoarthritis, Stiffness, Swelling Integumentary: Wound. negative: Bruising, Itching Allergic/Immunologic: No Symptoms Reported. negative: Hives, Itching Hematologic: Anemia. negative: Lymphadenopathy Endocrine: No Symptoms Reported. negative: Weight Gain, Weight Loss Psychiatric: Depression. negative: Anxiety - Physical Exam Vital Signs: Initial Vitals Temperature 98 F 03/07/16 11:12 Constitutional: No apparent distress, Alert Oriented to: Time, Person, Place - HEENT Head: Normal. negative: Laceration, Tender Eye: Normal. negative: Edema, Scleral Icterus Oropharynx: Normal. negative: Membranes Dry, Red ENT EAC: Normal. negative: Blood TMJ: Normal. negative: Crepitance, Tender Nose: No Symptoms Reported. negative: Abrasion, Bleeding Respiratory: Normal - CTA. negative: Diminished, Rhonchi Cardiovascular: Normal. negative: Bradycardia, Tachycardia, Irregular, Diastolic murmur, Systolic murmur - GI Auscultation: Normal. negative: Bruit Palpation: Normal. negative: Enlarged liver, Enlarged spleen Tenderness: Non tender Meier's Sign: Negative Rectal Exam: Deferred - Exam Deferred: Yes - Musculoskeletal Back: Normal. negative: Abrasion, CVA Tenderness Extremities: Other (Wound left hip. Covered with IO band.). negative: Calf Tenderness, Clubbing, Cyanosis Spine: non-tender, normal alignment, normal inspection - Integumentary Skin: Normal. negative: Clammy, Diaphoretic Lymphatics: Normal. negative: Adenopathy, Tender - Neurologic Memory Impaired: Normal Motor Function: Normal Cranial Nerve: Normal Cerebellar: Normal Mood Description: Normal Thought: Coherent Perception: Normal - Lab Results 03/11/16 07:54 03/10/16 06:55 - Assessment/Plan (1) Pulmonary embolus and infarction I26.99 - OTHER PULMONARY EMBOLISM WITHOUT ACUTE COR PULMONALE Chronic Comment: Patient with hematemesis. Needs IVC filter since can't anticoagulate. Explained in detail to patient. Will arrange. (2) Hematemesis with nausea K92.0 - HEMATEMESIS; R11.0 - NAUSEA Acute Comment: Unable to anticoagulate so will need inferior vena cava filter. May need GI evaluation to make sure there is no underlying malignancy or other complicating factors. (3) Septic arthritis of hip M00.9 - PYOGENIC ARTHRITIS, UNSPECIFIED Suspected left Comment: Needs long-term IV antibiotics so we will put place tunneled central access. (4) COPD (chronic obstructive pulmonary disease) J44.9 - CHRONIC OBSTRUCTIVE PULMONARY DISEASE, UNSPECIFIED Acute unspecified COPD J44.9 - Chronic obstructive pulmonary disease, unspecified Comment: Will do procedures under local to avoid pulmonary complications.
--- NOTE | 2016-03-11 11:50 | HIMOP ---
DATE OF PROCEDURE: 03/07/2016 PREOPERATIVE DIAGNOSIS: Left hip infection, status post left total hip replacement. POSTOPERATIVE DIAGNOSIS: Left hip infection, status post left total hip replacement. PROCEDURE PERFORMED: Irrigation and debridement, left hip with the exchange of the femoral head. SURGEON: Chay Phillips MD WIRE TWISTER: Dennis Butler. ANESTHESIA: General endotracheal anesthesia. IV FLUIDS: Crystalloids. ESTIMATED BLOOD LOSS: 200 mL. SPECIMENS: Cultures sent for Gram staining as well as tissue and fluid were both sent for Gram staining as well as for tissue culture. COMPLICATIONS: None. IMPLANTS: Maritza 36 millimeter outer diameter stainless steel head. BRIEF HISTORY: Deandra Jessica is a [id number], who back on 02/12/2016, underwent left total hip replacement. Two weeks postoperatively she was noticed to have mild wound dehiscence. This wound dehiscence progressed and patient developed serosanguineous drainage from the wound. The patient was initially tried on oral antibiotics; however, the drainage progressed. At that time, decision was made to proceed with irrigation and debridement of the left hip with possible exchange of the poly or the femoral head. The patient understood that the risks involved in surgery include continued infection, need for further surgery, continued pain, DVT, pulmonary embolism, stroke, or even . She volunteered an informed consent. The patient was seen on the day of surgery in the preop holding area. Surgical site was marked. The patient was then wheeled back into the operating room. DESCRIPTION OF THE PROCEDURE: The patient was placed supine on the operating table. Proper timeout was performed. Antibiotics were withheld until the cultures were obtained. Previously made incision was utilized. Skin and deep fascia was incised. The serosanguineous fluid was seen in the deep to the deep fascia extending all up to the level of the arthroplasty. The hip was done through the indirect anterior approach. The sutures in the tensor fascia lourdes were removed. The hip was dislocated. The hip polyethylene was in good shape and was left as such. The patient had a ceramic femoral head. This was removed. The wound was copiously irrigated with 6 liters of normal saline. The wound was also irrigated with Betadine. No osiel pus was encountered. The fluid was sent for cultures and Gram staining as well as the tissue, which was sent for cultures and Gram staining. We replaced the ceramic head with a stainless steel femoral head of the same size. The hip was reduced. The wound was closed in layers after placing vancomycin powder in the wound. A sterile dressing was applied. The patient tolerated the procedure very well. DISPOSITION: The patient would be started on IV Ancef until the cultures are back. At that time, proper antibiotics will be started IV. The medicine service will be consulted regarding the advice on the IV antibiotics. [id number]
[2016-03-11] MEDS: CALCIUM CARBONATE + VITAMIN D 500 MG TAB PO SCH ×2 (12:08→17:16)
[2016-03-11] MEDS: VITAMINS, MULTIPLE CAP PO SCH (12:09)
[2016-03-11] MEDS ORDERED: ISOVUE-300 (61%) 50 ML ONE (14:25)
[2016-03-11] MEDS ORDERED: HEPARIN 5000 UNITS/ML VIAL ONE ×2 (14:25→14:45)
[2016-03-11] MEDS ORDERED: BUPIVACAINE 0.25%-EPINEPHRINE 1:200,000 30 ML ONE (14:28)
[2016-03-11] MEDS ORDERED: LIDOCAINE 1% 30 ML VIAL (PRESERVATIVE FREE) ONE (15:15)
[2016-03-11] MEDS ORDERED: LABETALOL 20 MG/4 ML SYRINGE IV PRN (15:32)
[2016-03-11] MEDS ORDERED: ONDANSETRON HCL 4 MG ODT TAB PO PRN (15:32)
[2016-03-11] MEDS ORDERED: ONDANSETRON HCL 4 MG/2 ML VIAL IV PRN (15:32)
[2016-03-11] MEDS ORDERED: HYDROmorphone 1 MG INJECTION IV PRN ×2 (15:32)
[2016-03-11] MEDS ORDERED: MEPERIDINE 25 MG/ML TUBEX IV PRN (15:32)
[2016-03-11] MEDS ORDERED: hydrALAZINE 20 MG/ML VIAL IV PRN (15:32)
[2016-03-11] MEDS ORDERED: FENTANYL 100 MCG/2 ML VIAL IV PRN ×2 (15:32)
--- NOTE | 2016-03-11 15:35 | HIM.ANES ---
Anesthesia Evaluation & Plan Consented Procedure: INCISION AND DEBRIDEMENT LEFT HIP AND OTHER PROCEDURES INDICATED Surgeon:: Chay Phillips - Focused Review of Systems Cardiac History: Yes: Hx Hypertension, Hx Heart Murmur (SYSTOLIC HEART MURMUR), Hx Cardiac Disorders, Hx Abnormal Cholesterol/Hyperlipidemia HEENT: Yes: Loose/Decaying Teeth, Hx Vision Problem (GLASSSES), Other HEENT Problems Hx Other HEENT Problems: SEASONAL ALLERGIES Respiratory: Yes: Hx Asthma (Rare rescue use), Hx Chronic Obstructive Pulmonary Disease (COPD), Other Hx Respiratory (h/o PE in 01/2016 after last surgery) No: Hx Pneumonia Gastrointestinal: Yes: Hx Gastroesophageal Reflux Disease (Controlled w Rx), Hx Gastrointestinal Disorders, Hx Colonoscopy (2006, 2013), Hx Endoscopy (07/07), Hx Endoscopic Retrograde Cholangio (07/07), Hx Esophageal Dilatation Neurological/Musculoskeletal: Yes: Hx Migraine, Hx Back Pain, Hx Neurological Disorders Psychological: Yes Hx Depression, No Hx Mental/Emotional Disorders Blood/Autoimmune: Yes: Hx Anemia No: Hx Blood Transfusions, Hx AIDS, Hx Hepatitis (type) Smoking Status: Never smoker Past Social History: Denies: Barbiturate Use, Benzodiazipine Use, Substance Use Disorder Hx Echocardiogram (date): Yes (12/2014 EF 60%) Surgical History: Yes: Nasal (SINUS SX.), Back (LUMBAR DISCECTOMY 12/2014), Hip (LEFT TOTAL HIP), Other (Bilateral tubal ligation in 1974, Lymph node removed from the left breast) Other Surgical History: RT BREAST LUMPECTOMY, BTL 1974 - Focused Physical Exam NPO since: 03/07/16 0800 1/2 CUP BLACK COFFEE WITH MEDS Mallampati: Class II Thyromental Distance: Greater than 3 Neck: Full Range of Motion Dental: Removable Dental Work (missing front teeth) Any problems with anesthesia, including nausea and vomiting?: No Any relatives with a history of Malignant Hyperthermia?: No Does patient have a history of Malignant Hyperthermia?: No Beta Susan given (if appropriate): N/A Does the patient have a history of Motion Sickness-: No Other: Problem List Problem Status Onset Anemia Acute Hematemesis with nausea Acute Infection of left prosthetic hip joint Acute Pulmonary embolus and infarction Chronic Septic arthritis of hip Suspected Abscess Acute COPD (chronic obstructive pulmonary disease) Acute Cellulitis and abscess of digit Acute Chest tightness or pressure Acute History of excision of lamina of lumbar vertebra for decompression of spinal cord Acute Hypertension Acute Status post total hip replacement, left Acute Lumbar spinal stenosis Chronic Rheumatoid arthritis Chronic CBC/BMP/Other 03/11/16 07:54 03/10/16 06:55 Allergies Allergy/AdvReac Type Severity Reaction Status Date / Time codeine Allergy See Verified 03/07/16 11:31 Comments mold Allergy See Verified 03/07/16 11:30 Comments Home Medications Medication Instructions Recorded Last Taken Type Fluticasone/Salmeterol [Advair 1 puff INH BID 08/06/13 03/07/16 08:00 History 250-50 Diskus] Albuterol Sulfate [Proair Hfa] 2 puff INH Q4-6H PRN 01/02/15 01/16/15 07:30 History Pantoprazole Sodium 40 mg PO DAILY 01/04/16 03/07/16 08:00 History Lisinopril/Hydrochlorothiazide 1 tab PO DAILY 02/09/16 03/07/16 08:00 History [Lisinopril-Hctz 20-12.5 mg Tab] Ergocalciferol (Vitamin D2) 50,000 units PO WEEKLY 02/12/16 03/04/16 History [Vitamin D2 (ergocalciferol)] Oxycodone Immediate Release 5 mg PO Q4-6H PRN #40 tab 02/13/16 02/13/16 12:58 Rx [Oxycodone Immediate Release (OxyIR)] Docusate-Senna Concentrate 2 each PO QHS PRN 03/07/16 Unknown History [Senokot S or Martha Colace] Rivaroxaban [Xarelto] 15 mg PO BID 03/07/16 03/07/16 08:00 History Sulfamethoxazole/Trimethoprim 1 tab PO BID 03/07/16 03/06/16 19:00 History [Bactrim Ds Tablet] Height and Weight Patient's height 5 ft 4 in Patient's weight 93.242 kg Weight (Calculated Kilograms) 93.242 BMI 34.0 Vital Signs Temperature 97.9 F 03/11/16 10:37 Pulse Rate 80 03/11/16 14:02 Respiratory Rate 20 03/11/16 14:02 Blood Pressure 152/66 03/11/16 14:02 Pulse Oxygen Saturation 95 03/11/16 14:02 METS - Level of Activity: Eating, Dressing, walking around house, dishwashing - Anesthetic Plan Anesthesia Type: MAC ASA Class: 3 -: I have examined this patient and reviewed the medical record. The patient has been assessed prior to anesthesia. Risks and benefits of anesthesia and anesthetic technique options have been discussed and all questions answered. The patient accepts the risk and desires me to proceed with the planned anesthetic.
--- NOTE | 2016-03-11 16:12 | HIMOPRPT ---
DATE OF PROCEDURE: 03/11/16 PREOPERATIVE DIAGNOSES: Pulmonary emboli, gastrointestinal bleeding unable to anticoagulate, poor IV access, need for long-term IV access for antibiotics for chronic infection. POSTOPERATIVE DIAGNOSES: Same. PROCEDURES: Placement of inferior vena cava filter with fluoroscopy and ultrasound guidance. Placement of right internal jugular Auguste catheter, tunneled central line with fluoroscopy and ultrasound guidance. SURGEON: Beka Michelle MD ANESTHESIA: Moderate IV sedation with local anesthesia. COMPLICATIONS: None. ESTIMATED BLOOD LOSS: Minimal. ANTIBIOTICS: Preoperative antibiotics given. INDICATIONS: The patient is an unfortunate female who had hip replacement and pulmonary emboli afterward she had been treated with anticoagulation for months but then had an infection of her hip and had to have that treated surgically. She developed some hematemesis and we have been asked to place inferior vena cava filter because of her history of pulmonary emboli. She also was in need of long-term IV access in order that she can get IV antibiotics for her infected hip. We explained the risks and benefits of this to her including the risk of infection, bleeding and anesthesia as well as the unforeseen complications. We also discussed the possibility of migration of the inferior vena cava filter. She understood and agreed. OPERATIVE NOTE: The patient was brought to the operating room and placed on the operating table in the supine position. After adequate amount of general anesthesia she was prepped and draped in sterile manner. When given the okay by anesthesia after appropriate time-out the right neck was anesthetized and under ultrasound guidance large-bore needle was placed into the internal jugular vein. A guidewire was placed in this with the advanced into the inferior vena cava with fluoroscopic control. A sheath and dilator were then placed over the guidewire and this was positioned below the renal vein orificies. A venogram was obtained that showed the cava to be 29 mm in diameter. We positioned the sheath below the renal veins and deployed the inferior vena cava filter under fluoroscopic control. It was in excellent condition. The guidewire was replaced and the sheath was removed. Over the guidewire dilator and sheath were placed and then a counter incision was made on the chest wall after infiltration of local anesthetic. The catheter was tunneled between the 2 sites and then the dilator and guidewire removed and catheter was placed through the sheath. The catheter had been cut to appropriate size and was positioned at the atrial caval junction. The sheath had been removed. The catheter flushed and withdrew without any difficulties and was sutured to the chest wall with nylon suture and the access site was closed with 4 0 Monocryl. Dermabond tissue adhesive was applied and allowed to dry. The patient was awoke and taken recover room in excellent condition with correct sponge counts needle counts.
--- NOTE | 2016-03-11 16:49 | SC.ANESPOS ---
Post-Anesthesia Note LOC: Fully Awake Post-Anesthesia Assessment: Awake, Returned to Baseline, Hemodynamically Stable , Pain Control Adequate Phase I & II Recovery Complete: Yes Apparent Anesthesia Complication: No : N PACU Discharge Time: 18:25 - Vital Signs Blood Pressure: 142/62 Pulse: 84 Resp Rate: 16 O2 Sat: 94 Temp: 99.2 F - Comments Anesthesia Discharge Time Report Time 18:25
[2016-03-11] MEDS: PANTOPRAZOLE 40 MG VIAL IV SCH (17:17)
[2016-03-11] MEDS: CEFTRIAXONE 2 GM in D5W 100 ML IV SCH (19:16)
[2016-03-11] MEDS: OXYCODONE HCL 5 MG TABLET PO PRN (19:47)
[2016-03-11] MEDS ORDERED: PROPOFOL 200 MG/20 ML VIAL IV ONE (20:14)
[2016-03-11] MEDS ORDERED: FENTANYL 100 MCG/2 ML VIAL IV ONE (20:14)
[2016-03-11] MEDS ORDERED: MIDAZOLAM 2 MG/2 ML VIAL IV ONE (20:14)
[2016-03-12] MEDS: ACETAMINOPHEN 325 MG/TAB TABLET PO SCH ×2 (04:32→13:34)
[2016-03-12] MEDS: PANTOPRAZOLE 40 MG VIAL IV SCH ×2 (04:32→17:41)
[2016-03-12] MEDS: SODIUM CHLORIDE 0.9% 3 ML FLUSH FLUSH SCH ×2 (04:40→17:41)
--- NOTE | 2016-03-12 06:21 | PCM.ORTHBL ---
- Subjective Hospital Day #: 6 Post Op Day: 5 Daily Assessment - Patient: Reports: No new complaints, Awake Alert Oriented x4 , Feels better, Still having pain, Tolerating Regular Diet, Ambulating with Physical Therapist. Denies: Shortness of breath, Nausea, Vomiting - Objective / Physical Exam Vital Signs: Temperature: 99.2 F (03/11/16 16:49) HR: 73 (03/11/16 22:00)RR: 18 (03/11/16 22: 00) BP: 115/59 (03/11/16 22:00)Pulse Ox: 93 (03/11/16 22:00) General: Alert, Oriented x3, Cooperative, No acute distress, Well appearing Musculoskeletal / Extremities: 2 plus Dorsalis Pedis Pulse. negative: Dressing Clean/Dry/Intact (Dressing was changed again today. New Ioban dressing was placed. Continues to have some drainage along mid incision), Tenderness (no calf tenderness) Neurological: Positive Sensation First Dorsal Web Space, Sensation to light touch intact, Extensor Hallicus Longus Intact, Flexor Hallicus Longus Intact, Dorsiflexion Intact, Plantarflexion Intact - Assessment and Plan (1) Infection of left prosthetic hip joint Acute T84.52XA - INFECT/INFLM REACTION DUE TO INTERNAL LEFT HIP PROSTH, INIT Present on Admission: Yes initial encounter T84.52XA - Infection and inflammatory reaction due to internal left hip prosthesis, initial encounter Plan: POD#5 s/p I&D of left JOSEP, revision of head Continue pain management Dressing change today. Consider woundvac, however will observe until tomorrow. Continue IV antibiotics. PICC line has been placed. Patient will need 6 weeks IV antibiotics. Continue antibiotics per medicine TEDS/SCDS/IVC filter has been placed for DVT prophylaxis D/C plan for SNF/rehab, possibly tomorrow with 6 weeks IV antibiotics. Will need CBC, BMP, SED rate, and CRP every 2 weeks. With plan to follow-up in office in week or earlier as needed.
[2016-03-12 06:25] VITALS: TEMP 98.4
--- NOTE | 2016-03-12 06:25 | PCM.DCS92 ---
- Final/Secondary Discharge Diagnosis (1) Infection of left prosthetic hip joint Acute T84.52XA - INFECT/INFLM REACTION DUE TO INTERNAL LEFT HIP PROSTH, INIT Present on Admission: Yes initial encounter T84.52XA - Infection and inflammatory reaction due to internal left hip prosthesis, initial encounter Discharge Disposition: Home Discharge Condition: Improved Cognitive Discharge Status: Unimpaired Fuctional Discharge Status: Walker Assistance, Recent lower extremety joint replacement, Post-op Weakness Physician Follow up/Referrals: Chay Phillips MD [Staff Physician] - One Week New Prescriptions: Ceftriaxone [Rocephin] 2 gm IV Q24H #40 vial Docusate-Senna Concentrate [Senokot S or Martha Colace] 2 each PO QHS #60 tab Oxycodone Immediate Release [Oxycodone Immediate Release (OxyIR)] 5 mg PO Q4H PRN #40 tab PRN Reason: Pain Pantoprazole Sodium 40 mg PO BID #60 tablet. Vancomycin HCl [Vancomycin] 1,750 mg IV Q24H #40 vial Diet at Discharge: As Tolerated, Cardiac Activity: As Tolerated, No Heavy Lifting, No Driving Call Office For: Worsening Symptoms, Wound is Draining Pus, Fever over 101 F, Fever over 100.5, Wound is Painful, Wound is Red, Weight Gain (see below), Pain Uncontrolled By Meds, Other (See Details) Discontinue use of:: Alcohol, All Illegal Substances, All Types of Tobacco - DC Summary Notes Hospital Course Note:: Discharge summary on patient named RAPHAEL LIVE admitted to [facility] on 03/07/16 by Chay Phillips MD. Date of discharge is [03/12/16]. Afebrile. Hospital course and surgery uneventful. Progressing with PT. Continue pain management. Continue IV antibiotics. IVC filter has been placed for DVT prophylaxis. Wound vac has been placed. Do not remove dressing. Should call office with any dressing concerns. Discharge plan for home with HH/ PT with 6 weeks IV antibiotics. Will need CBC, BMP, SED rate, and CRP every 2 weeks. With plan to follow-up in office in 1 week or earlier as needed. Wound Care Surgical Site: Yes Site Description (if applicable): left hip May Shower Starting:: upon discharge; keep wound vac clean and dry Dressing/Site Care (if applicable): Wound vac in place. Do not remove dressing. Call office with any dressing concerns. Medical Equipment (Order must still be written on paper): Walker Remove Transdermal Scopalamine patch if present: YES Medication Instructions: Take Stool Softener Continue Ice Packs/Ice Machine to Operative Area: Yes Activity as Tolerated: Yes Weight Bearing: Full Current Dressing: Ioban Dressing Care: Keep Wound Clean & Dry, No Tub Baths, Do Not Change Dressing ( Call office with any dressing concerns. Reinforce as needed.), Other Instructions Below (keep woundvac clean and dry.) - Consults/Home Health Outpatient Consults: Home Health, Physical Therapy - Physical Exam Vital Signs: Initial Vitals Temperature 98 F 03/07/16 11:12 Constitutional: No apparent distress, Alert, Well appearing Oriented to: Time, Person, Place - HEENT Head: Normal - Musculoskeletal Extremities: Pedal Pulse. negative: Calf Tenderness - Neurologic Memory Impaired: Normal Motor Function: Normal Cerebellar: Normal Mood Description: Normal Thought: Coherent Perception: Normal
[2016-03-12] MEDS: FLUTICASONE/SALMETEROL 250/50 DISKUS INH SCH (07:45)
[2016-03-12 08:16] LABS: AUTOMATED BASOPHIL 0.8 % (0-2); AUTOMATED EOSINOPHIL 4.4 % (0-5); AUTOMATED LYMPH 17.9 % (17-44); AUTOMATED MONOCYTE 8.6 % (3-10); AUTOMATED NEUTROPHIL 68.3 % (45-76); MPV 8.3 fL (7.4-10.4)
--- NOTE | 2016-03-12 08:22 | PCM.SURGRO ---
- Subjective Patient: Reports: No new complaints - Objective / Physical Exam Vital Signs: Temperature: 98.4 F (03/12/16 05:00) HR: 73 (03/12/16 05:00)RR: 20 (03/12/16 05: 00) BP: 118/57 (03/12/16 05:00)Pulse Ox: 94 (03/12/16 05:00) General: Alert, Cooperative Extremities: negative: Tenderness, Swelling, Edema, Clubbing, Cyanosis Surgical wound: Clean/Dry (Neck incision.), Intact - Assessment and Plan (1) Pulmonary embolus and infarction Chronic I26.99 - OTHER PULMONARY EMBOLISM WITHOUT ACUTE COR PULMONALE Present on Admission: Yes Comment/Plan: S/P IVC filter and Auguste cath doing well. Call if anything else needed. (2) Hematemesis with nausea Acute K92.0 - HEMATEMESIS; R11.0 - NAUSEA (3) Septic arthritis of hip Suspected M00.9 - PYOGENIC ARTHRITIS, UNSPECIFIED Present on Admission: Clinically Unable to Determine left (4) COPD (chronic obstructive pulmonary disease) Acute J44.9 - CHRONIC OBSTRUCTIVE PULMONARY DISEASE, UNSPECIFIED unspecified COPD J44.9 - Chronic obstructive pulmonary disease, unspecified
[2016-03-12] MEDS: LISINOPRIL 20 MG TAB PO SCH (08:38)
[2016-03-12] MEDS: CALCIUM CARBONATE + VITAMIN D 500 MG TAB PO SCH ×2 (08:38→17:41)
[2016-03-12] MEDS: VITAMINS, MULTIPLE CAP PO SCH (08:38)
--- NOTE | 2016-03-12 10:12 | PCM.DCS92 ---
- Final/Secondary Discharge Diagnosis (1) Septic arthritis of hip Suspected M00.9 - PYOGENIC ARTHRITIS, UNSPECIFIED Present on Admission: Yes left Comment: Deep tissue culture results- shows MRSA, Morganella, and Strep species , continue IV vancomycin and renal function and 2g IV ceftriaxone q 24 hours. Also IV Diflucan as yeast prophylaxis. Dr. Michelle has placed PICC and IVC filter. She will be discharged on IV vancomycin and IV Rocephin for 6 weeks. She is to have a BUN, creatinine, Sed rate, CRP vancomycin level and renal profile done once a week. (2) Anemia Acute D64.9 - ANEMIA, UNSPECIFIED Present on Admission: Yes other cause acute posthemorrhagic D62 - Acute posthemorrhagic anemia Comment: ACUTE BLOOD LOSS- continue to hold Xarelto & Aspirin. Patient is on Protonix infusion. Transfused 2 units PRBCs yesterday. (3) Hypertension Acute I10 - ESSENTIAL (PRIMARY) HYPERTENSION Present on Admission: Yes essential hypertension I10 - Essential (primary) hypertension Comment: Resume home medications. Continue to monitor blood pressures (4) Status post total hip replacement, left Acute Z96.642 - PRESENCE OF LEFT ARTIFICIAL HIP JOINT Present on Admission: Yes Comment: P.r.n. analgesics and physical therapy when cleared by surgery to participate. (5) Hematemesis with nausea Acute K92.0 - HEMATEMESIS; R11.0 - NAUSEA Comment: Stopped all NSAIDs & Aspirin, off Celebrex and Xarelto, continue IV Protonix infusion. Follow H/H. Transfused blood yesterday. Use SCD's in meantime. (6) Rheumatoid arthritis Chronic M06.9 - RHEUMATOID ARTHRITIS, UNSPECIFIED Present on Admission: Yes multiple sites unspecified presence M06.9 - Rheumatoid arthritis, unspecified Comment: Hold any DMARDs for now, give adequate analgesics and begin physical therapy (7) Pulmonary embolus and infarction Chronic I26.99 - OTHER PULMONARY EMBOLISM WITHOUT ACUTE COR PULMONALE Present on Admission: Yes Comment: occurred 1 month ago- was still on Xarelto for this. Unfortunately had to discontinue this medication due to hematemesis. Dr. Michelle to place IVC filter. (8) GI bleeding Acute K92.2 - GASTROINTESTINAL HEMORRHAGE, UNSPECIFIED Present on Admission: Yes gastritis acute gastritis K29.01 - Acute gastritis with bleeding Comment: Likely from her NSAIDs and anticoagulation combination. These have been discontinued at this time. She is on a proton-pump inhibitor, and has an IVC filter sincer further anticoagulation will be contraindicated in this patient. Discharge Disposition: Care Home Facility Discharge Condition: Improved Cognitive Discharge Status: Unimpaired Fuctional Discharge Status: Walker Assistance, Fall Risk, Inability to drive due to severe medical illness, Deconditioning, Recent lower extremety joint replacement, Post-op Weakness Physician Follow up/Referrals: Chay Phillips MD [Staff Physician] - One Week New Prescriptions: Ceftriaxone [Rocephin] 2 gm IV Q24H #40 vial Docusate-Senna Concentrate [Senokot S or Martha Colace] 2 each PO QHS #60 tab Oxycodone Immediate Release [Oxycodone Immediate Release (OxyIR)] 5 mg PO Q4H PRN #40 tab PRN Reason: Pain Pantoprazole Sodium 40 mg PO BID #60 tablet. Vancomycin HCl [Vancomycin] 1,750 mg IV Q24H #40 vial Discharge Home Medication List Fluticasone/Salmeterol [Advair 250-50 Diskus] 1 puff INH BID 08/06/13 [History Confirmed 03/07/16 Last Taken 03/07/16 08:00] Albuterol Sulfate [Proair Hfa] 2 puff INH Q4-6H PRN 01/02/15 [History Confirmed 03/07/16 Last Taken 01/16/15 07:30] Lisinopril/Hydrochlorothiazide [Lisinopril-Hctz 20-12.5 mg Tab] 1 tab PO DAILY 02/09/16 [History Confirmed 03/07/16 Last Taken 03/07/16 08:00] Ergocalciferol (Vitamin D2) [Vitamin D2 (ergocalciferol)] 50,000 units PO WEEKLY 02/12/16 [History Confirmed 03/07/16 Last Taken 03/04/16] Oxycodone Immediate Release [Oxycodone Immediate Release (OxyIR)] 5 mg PO Q4-6H PRN #40 tab 02/13/16 [Rx Confirmed 03/07/16 Last Taken 02/13/16 12:58] Docusate-Senna Concentrate [Senokot S or Martha Colace] 2 each PO QHS PRN [History Confirmed 03/07/16 Last Taken Unknown] Docusate-Senna Concentrate [Senokot S or Martha Colace] 2 each PO QHS #60 tab [Rx Last Taken Unknown] Oxycodone Immediate Release [Oxycodone Immediate Release (OxyIR)] 5 mg PO Q4H PRN #40 tab 03/11/16 [Rx Last Taken Unknown] Calcium Carbonate + Vitamin D [Oscal with Vitamin D] 500 mg PO TID #100 tablet 03/12/16 [Rx Last Taken Unknown] Ceftriaxone [Rocephin] 2 gm IV Q24H #40 vial 03/12/16 [Rx Last Taken Unknown] Diphenhydramine [Benadryl] 25 mg PO Q6H PRN #30 capsule 03/12/16 [Rx Last Taken Unknown] Pantoprazole Sodium 40 mg PO BID #60 tablet. 03/12/16 [Rx Last Taken Unknown] Vancomycin HCl [Vancomycin] 1,750 mg IV Q24H #40 vial 03/12/16 [Rx Last Taken Unknown] Vitamins, Multiple [Unicap] 1 cap PO DAILY@1200 #30 capsule 03/12/16 [Rx Last Taken Unknown] O2 Device: Room Air Diet at Discharge: As Tolerated, Cardiac Activity: As Tolerated, No Heavy Lifting, No Driving Call Office For: Worsening Symptoms, Wound is Draining Pus, Fever over 101 F, Fever over 100.5, Wound is Painful, Wound is Red, Weight Gain (see below), Pain Uncontrolled By Meds, Other (See Details) Discontinue use of:: Alcohol, All Illegal Substances, All Types of Tobacco - DC Summary Notes Hospital Course Note:: Discharge summary on patient named DEANDRA JESSICA admitted to [facility] on 03/07/16 by Chay Phillips MD. Date of discharge is []. Deandra Jessica is a 65 year old woman who underwent L hip replacement for osteoarthritis and degenerative joint disease of the hip on February 12, 2016. Subsequently she had persistent pain and drainage from the incision site. Apparently the wound re-opened and drained additional material. She was re- evaluated and felt to have an infected joint. She was readmitted today to have the joint washed out and to start IV antibiotics. The entire pre-operative evaluation is not clearly delineated. Presently she is being seen post- operatively at the request of Dr. Franco for assistance with antibiotic coverage. Presumable wound cultures were taken during surgery but are of course not available at this time. We will follow up on those as soon as they do become available. Initial recommendations are for vancomycin plus either clindamycin or ceftriaxone. Since the patient has no allergies, we would recommend ceftriaxone 2 g IV q 24 hr plus vancomycin weight/renal dosing per pharmacy. Deep tissue culture results- shows MRSA, Morganella, and Strep species, continue IV vancomycin and renal function and 2g IV ceftriaxone q 24 hours. Also IV Diflucan as yeast prophylaxis. She did develop GI bleeding with hematemesis during her admission, severe enough that she required transfusion with 2 units of packed red blood cells. Her hemoglobin had dropped to 6.5 g/ dL. Likely from her NSAIDs and anticoagulation combination. These have been discontinued at this time. She is on a proton-pump inhibitor, and has an IVC filter since further anticoagulation will be contraindicated in this patient. Dr. Michelle has placed PICC and IVC filter. She will be discharged on IV vancomycin and IV Rocephin for 6 weeks. She is to have a BUN, creatinine, Sed rate, CRP, and vancomycin level, and renal profile done once a week. These should be followed by her primary care physician and Dr. Franco. Total Time: 45 min Code: 86481 (>30min.) Wound Care Surgical Site: Yes Site Description (if applicable): left hip May Shower Starting:: upon discharge Dressing/Site Care (if applicable): Do not remove dressing. Call office with any dressing concerns. - Physical Exam Vital Signs: Last Vital Signs Temp 98.4 F 03/12/16 05:00 Pulse 73 03/12/16 05:00 Resp 20 03/12/16 05:00 BP 118/57 L 03/12/16 05:00 Pulse Ox 94 03/12/16 05:00 Oxygen Pulse Oxygen Saturation 94 O2 Device Room Air Oxygen Flow Rate 2 Fraction of Inspired Oxygen ( 100 FIO2) Constitutional: No apparent distress, Alert Oriented to: Time, Person, Place - HEENT Head: Normal. negative: Laceration, Tender Eye: Normal. negative: Edema, Scleral Icterus Oropharynx: Normal. negative: Membranes Dry, Red ENT EAC: Normal. negative: Blood TMJ: Normal. negative: Crepitance, Tender Nose: No Symptoms Reported. negative: Abrasion, Bleeding - Respiratory/Cardiovascular Respiratory: Normal - CTA Cardiovascular: Normal (regular rhythm and rate) - GI Auscultation: Normal. negative: Bruit Palpation: Normal. negative: Enlarged liver, Enlarged spleen Tenderness: Non tender Meier's Sign: Negative Rectal Exam: Deferred - Musculoskeletal Back: Normal. negative: Abrasion, CVA Tenderness Extremities: Other (Wound left hip. Covered with IO band.). negative: Calf Tenderness, Clubbing, Cyanosis - Integumentary Skin: Warm, Dry Lymphatics: Normal - Neurologic Memory Impaired: Normal Motor Function: Normal Cranial Nerve: Normal Cerebellar: Normal Mood Description: Normal Thought: Coherent Perception: Normal
[2016-03-12 14:01] VITALS: BP 135/62; PULSE 77
[2016-03-12] MEDS ORDERED: CEFTRIAXONE 2 GM in D5W 100 ML IV SCH (16:00)
[2016-03-12] MEDS: OXYCODONE HCL 5 MG TABLET PO PRN (16:07)
[2016-03-12] MEDS: DOCUSATE-SENNA CONCENTRATE TAB PO PRN (16:07)
[2016-03-12] MEDS: MAGNESIUM HYDROXIDE 30 ML BOTTLE PO PRN (16:07)
[2016-03-15] MEDS ORDERED: RIVAROXABAN 10 MG TAB PO SCH (08:00)
== END 2016-03-12 20:15 | disposition home health service (06) | DRG 467 ==
LOC: SDC 11:12 → MPS3 11:13
PROVIDERS: ADMIT Orthopaedic Surgery; ATTEND Orthopaedic Surgery
PROC: 0SPS0JZ Removal of Synthetic Substitute from Left Hip Joint, Femoral Surface, Open Approach (ICD-10-PCS; 2016-03-07)
PROC: 0SRS01Z Replacement of Left Hip Joint, Femoral Surface with Metal Synthetic Substitute, Open Approach (ICD-10-PCS; principal; 2016-03-07 12:45)
PROC: 30233N1 Transfusion of Nonautologous Red Blood Cells into Peripheral Vein, Percutaneous Approach (ICD-10-PCS; 2016-03-09)
PROC: 06H03DZ Insertion of Intraluminal Device into Inferior Vena Cava, Percutaneous Approach (ICD-10-PCS; 2016-03-11)
PROC: 05HM33Z Insertion of Infusion Device into Right Internal Jugular Vein, Percutaneous Approach (ICD-10-PCS; 2016-03-11)
PROC: B513ZZA Fluoroscopy of Right Jugular Veins, Guidance (ICD-10-PCS; 2016-03-11)
DX: T84.52XA Infection and inflammatory reaction due to internal left hip prosthesis, initial encounter (principal); I27.82 Chronic pulmonary embolism; K92.0 Hematemesis; M00.9 Pyogenic arthritis, unspecified; M00.252 Other streptococcal arthritis, left hip; M00.052 Staphylococcal arthritis, left hip; D62 Acute posthemorrhagic anemia; M00.852 Arthritis due to other bacteria, left hip; I10 Essential (primary) hypertension; M06.9 Rheumatoid arthritis, unspecified; J45.909 Unspecified asthma, uncomplicated; J44.9 Chronic obstructive pulmonary disease, unspecified; B95.5 Unspecified streptococcus as the cause of diseases classified elsewhere; Y83.1 Surgical operation with implant of artificial internal device as the cause of abnormal reaction of the patient, or of later complication, without mention of misadventure at the time of the procedure; Z79.01 Long term (current) use of anticoagulants; K21.9 Gastro-esophageal reflux disease without esophagitis; Y79.2 Prosthetic and other implants, materials and accessory orthopedic devices associated with adverse incidents; B95.62 Methicillin resistant Staphylococcus aureus infection as the cause of diseases classified elsewhere; B96.89 Other specified bacterial agents as the cause of diseases classified elsewhere; Z79.899 Other long term (current) drug therapy
CPT/HCPCS: 36430; 51798; 77001; 80048; 80202; 85025; 85027; 85651; 86140; 86850; 86900; 86901; 86920; 87070; 87075; 87076; 87077; 87186; 94640; 97161; 97162; 97165; C1751; G0237; J0330; J0690; J0696; J1170; J1200; J1644; J1940; J2001; J2250; J2405; J3010; J3370; J3490; J7030; J7060; P9016; S0164